=== PATIENT | female | born 1980 | race Two or more races ===

== ENCOUNTER 2021-08-30 14:55 | Emergency (ER) | payer OTHER, MEDICAID ==
[~2021-08-30] VITALS: Ht 162.6 cm; Wt 77.1 kg
[2021-08-30 15:05] VITALS: BP 154/108
[2021-08-30 16:09] LABS: Urine Bacteria FEW /hpf (None Seen); Urine Blood 2+ /uL (Negative); Urine Specific Gravity 1.018 (1.001-1.035); Urine WBC 4 /hpf (0 - 5)
[2021-08-30] MEDS ORDERED: NITR-87 PO (16:13)
== END 2021-08-30 16:55 | disposition home or self-care (01) ==
LOC: ER 14:55
DX: N39.0 Urinary tract infection, site not specified (principal)
CPT/HCPCS: 81001; 81025